=== PATIENT | male | born 1985 | race Caucasian/White ===

== ENCOUNTER 2021-06-26 13:47 | Emergency (ER) | payer SELFPAY ==
[~2021-06-26] VITALS: Ht 180.3 cm; Wt 72.7 kg
[2021-06-26 13:48] VITALS: BP 155/91
[2021-06-26] MEDS ORDERED: CEPH500C3 PO (16:12)
[2021-06-26] MEDS ORDERED: DiphenhydrAMINE HCL 25 MG CAPSULE PO ONE (17:45)
[2021-06-26] MEDS ORDERED: FAMOTIDINE 20 MG TABLET PO ONE (17:45)
[2021-06-26] MEDS ORDERED: DEXAMETHASONE SOD PHOS 4 MG/ML 5 ML VIAL IM ONE (17:45)
== END 2021-06-26 19:02 | disposition home or self-care (01) ==
LOC: EMS 14:00
DX: T78.40XA Allergy, unspecified, initial encounter (principal); X58.XXXA Exposure to other specified factors, initial encounter
CPT/HCPCS: 96372; 99283; J1100

== ENCOUNTER 2023-10-31 15:34 | Emergency (ER) | payer OTHER ==
[~2023-10-31] VITALS: Ht 180.3 cm; Wt 90.9 kg
[~2023-10-31 15:34] MED LIST: CEPH-558 PO
[2023-10-31] MEDS ORDERED: BUPR1FIL7 SL (15:41)
[2023-10-31 15:42] VITALS: TEMP 98.7
[2023-10-31 17:00] VITALS: BP 133/70; PULSE 89; RESP 18
== END 2023-10-31 17:04 | disposition home or self-care (01) ==
LOC: EMS 15:34
DX: F17.210 Nicotine dependence, cigarettes, uncomplicated (principal); F11.90 Opioid use, unspecified, uncomplicated; Z88.0 Allergy status to penicillin; Z76.0 Encounter for issue of repeat prescription
CPT/HCPCS: 99282; Z7502